=== PATIENT | male | born 1965 ===

== ENCOUNTER 2024-11-21 16:45 | Inpatient (IN) | payer OTHER ==
[~2024-11-21] VITALS: Ht 188 cm; Wt 98.7 kg
[2024-11-21] MEDS ORDERED: NS 1,000 ML IV SCH (17:30)
[2024-11-21] MEDS ORDERED: Pantoprazole Sodium 40 MG Injection IV ONE (17:30)
[2024-11-21 18:12] LABS: Prothrombin Time Results 12.3 Sec (9.7-11.5)
[2024-11-21 18:29] LABS: Magnesium, Blood 2.0 mg/dL (1.6-2.4)
[2024-11-21 18:30] LABS: Alanine Aminotransfer (ALT/SGP 41.0 U/L (12-78); Albumin, Blood 2.5 g/dL (3.4-5.0); Albumin/Globulin Ratio 0.6 (0.8-1.8); Anion Gap 9.0 mmol/L (3-11); Aspartate Aminotrans (AST/SGOT 43.0 U/L (12-37); Bilirubin, Total 1.2 mg/dL (0.1-1.0); Blood Urea Nitrogen 20.0 mg/dL (8-24); CO2, Blood 24.0 mmol/L (21-32); Calcium, Blood 8.7 mg/dL (8.5-10.1); Chloride, Blood 107.0 mmol/L (98-108); Creatinine, Blood 0.9 mg/dL (0.60-1.20); Globulin, Blood 4.5 g/dL (2.2-4.0); Glucose, Blood 98.0 mg/dL (70-99); Phosphorus, Blood 3.7 mg/dL (2.5-4.9); Potassium, Blood 4.1 mmol/L (3.5-5.5); Sodium, Blood 136.0 mmol/L (136-145); Total Protein, Blood 7.0 g/dL (6.4-8.2)
[2024-11-21 18:37] LABS: BASOPHILS ABSOLUTE AUTO 0.04 K/mm3 (0.00-0.23); BASOPHILS PERCENT AUTO 1 % (0-2); EOSINOPHILS ABSOLUTE AUTO 0.15 K/mm3 (0.00-0.68); EOSINOPHILS PERCENT AUTO 3 % (0-6); Hematocrit 39.3 % (37.0-53.0); Hemoglobin 12.6 g/dL (13.5-17.5); IMMATURE GRAN ABSOLUTE AUTO 0.01 K/mm3 (0.00-0.10); IMMATURE GRAN PERCENT AUTO 0 % (0-1); LYMPHOCYTES ABSOLUTE AUTO 1.04 K/mm3 (0.84-5.20); LYMPHOCYTES PERCENT AUTO 19 % (21-46); MONOCYTES ABSOLUTE AUTO 0.62 K/mm3 (0.16-1.47); MONOCYTES PERCENT AUTO 12 % (4-13); Mean Corpuscular HGB Conc 32.1 g/dL (31.5-36.5); Mean Corpuscular Volume 97 fL (80-100); NEUTROPHILS ABSOLUTE AUTO 3.51 K/mm3 (1.96-9.15); NEUTROPHILS PERCENT AUTO 65 % (41-73); NRBC ABSOLUTE 0.00 K/mm3 (0.00-0.02); NRBC Auto 0.0 /100 WBC (0.0-0.2); RDW Coefficient Variation 13.7 % (11.7-14.2); RDW Standard Deviation 48.1 fL (35.1-46.3)
[2024-11-21 18:55] LABS: Platelet Count 3 K/mm3 (150-400)
[2024-11-21 19:06] LABS: pH Blood Venous 7.41 (7.34-7.37)
[2024-11-21 19:48] LABS: Influenza A, PCR NEGATIVE (NEGATIVE); Influenza B, PCR NEGATIVE (NEGATIVE); Resp Syncytial Virus, PCR NEGATIVE (NEGATIVE); SARS-Cov-2 (COVID-19) PCR, MMC NEGATIVE (NEGATIVE)
[2024-11-21 20:02] LABS: IMMATURE RETIC FRACTION 28.6 % (2.3-16.0); RETIC HGB EQUIVALENT 31.7 pg (28.20-36.60); RETICULOCYTE ABSOLUTE 0.1268 M/mm3 (0.0200-0.1100); RETICULOCYTE COUNT PERCENT 2.99 % (0.50-2.50)
[2024-11-21 20:27] LABS: Lactate Dehydrogenase (Ld),Bld 422 U/L (100-240)
[2024-11-21] MEDS ORDERED: Dexamethasone Sod Phos 10 MG/ML 1ML VIAL IV ONE (21:55)
[2024-11-21] MEDS ORDERED: ATOR40TA PO (22:21)
[2024-11-21 22:22] LABS: Source, Urine Clean Catch
[2024-11-21] MEDS ORDERED: VITAMIN D350 MC3 PO (22:22)
[2024-11-21] MEDS ORDERED: SERTRALINE HCL50 MG PO (22:22)
[2024-11-21] MEDS ORDERED: CARV6.25 PO (22:22)
[2024-11-21] MEDS ORDERED: LEVSOD75 PO (22:22)
[2024-11-21] MEDS ORDERED: METF500C PO (22:23)
[2024-11-21] MEDS ORDERED: CefTRIAXone Sodium 1,000 MG in NS 100 ML IV ONE (22:25)
[2024-11-21] MEDS ORDERED: Dexamethasone Sodium Phosphate 4 MG/ML 5ML VIAL IV ONE (23:00)
[2024-11-21 23:44] LABS: Glucose Qualitative, Urine Neg (Neg); Ketones, Urine 1+ (Neg); Leukocyte Esterase, Urine 1+ (Neg); Protein, Urine 3+ (Neg); Specific Gravity, Urine 1.020 (1.003-1.022); Urobilinogen, Urine 1+ (Normal)
[2024-11-21 23:54] LABS: Bilirubin, Urine 1+ (Neg); Color, Urine Brown (P-Yellow)
[2024-11-21 23:55] LABS: Red Blood Cells, Urine TNTC /hpf (0-2)
[2024-11-21] MEDS ORDERED: FLU VACC TS2025-26(6MOS UP)/PF 45 MCG/0.5 ML SYRINGE IM SCH (23:55)
[2024-11-22] VITALS (61 sets, daily range): BP systolic 103–162; BP diastolic 38–116
[2024-11-22] LABS: U Amphetamine Screen DETECTED; U Barbiturate Screen Not Detected; U Benzodiazapine Screen Not Detected; U Buprenorphine Screen Not Detected; U Cannabinoids Screen Not Detected; U Cocaine Screen Not Detected; U Methadone Screen Not Detected; U Methamphetamine Screen DETECTED; U Opiates Screen Not Detected; U Oxycodone Screen Not Detected; U Phencyclidine Screen Not Detected
[2024-11-22] MEDS ORDERED: Guaifenesin/Dextromethorphan Syrup 5 ML UDC PO PRN (01:35)
[2024-11-22 05:15] LABS: BASOPHILS ABSOLUTE AUTO 0.02 K/mm3 (0.00-0.23); BASOPHILS PERCENT AUTO 0 % (0-2); EOSINOPHILS ABSOLUTE AUTO 0.01 K/mm3 (0.00-0.68); EOSINOPHILS PERCENT AUTO 0 % (0-6); Hematocrit 37.9 % (37.0-53.0); Hemoglobin 12.3 g/dL (13.5-17.5); IMMATURE GRAN ABSOLUTE AUTO 0.05 K/mm3 (0.00-0.10); IMMATURE GRAN PERCENT AUTO 1 % (0-1); LYMPHOCYTES ABSOLUTE AUTO 0.30 K/mm3 (0.84-5.20); LYMPHOCYTES PERCENT AUTO 6 % (21-46); MONOCYTES ABSOLUTE AUTO 0.08 K/mm3 (0.16-1.47); MONOCYTES PERCENT AUTO 2 % (4-13); Mean Corpuscular HGB Conc 32.5 g/dL (31.5-36.5); Mean Corpuscular Volume 97 fL (80-100); NEUTROPHILS ABSOLUTE AUTO 4.20 K/mm3 (1.96-9.15); NEUTROPHILS PERCENT AUTO 90 % (41-73); NRBC ABSOLUTE 0.00 K/mm3 (0.00-0.02); NRBC Auto 0.0 /100 WBC (0.0-0.2); RDW Coefficient Variation 13.5 % (11.7-14.2); RDW Standard Deviation 47.1 fL (35.1-46.3)
[2024-11-22 05:22] LABS: Platelet Count 0 K/mm3 (150-400)
[2024-11-22 05:37] LABS: Alanine Aminotransfer (ALT/SGP 39.0 U/L (12-78); Albumin, Blood 2.4 g/dL (3.4-5.0); Albumin/Globulin Ratio 0.6 (0.8-1.8); Anion Gap 6.0 mmol/L (3-11); Aspartate Aminotrans (AST/SGOT 34.0 U/L (12-37); Bilirubin, Total 1.1 mg/dL (0.1-1.0); Blood Urea Nitrogen 18.0 mg/dL (8-24); CO2, Blood 27.0 mmol/L (21-32); Calcium, Blood 8.2 mg/dL (8.5-10.1); Chloride, Blood 109.0 mmol/L (98-108); Creatinine, Blood 0.81 mg/dL (0.60-1.20); Globulin, Blood 4.2 g/dL (2.2-4.0); Glucose, Blood 176.0 mg/dL (70-99); Potassium, Blood 4.1 mmol/L (3.5-5.5); Sodium, Blood 138.0 mmol/L (136-145); Total Protein, Blood 6.6 g/dL (6.4-8.2)
--- NOTE | 2024-11-22 05:48 | NUR ---
SHIFT SUMMARY PT A/OX4, USES CALL LIGHT AND MAKES NEEDS KNOWN. PT ON AIRVO 40L/50%. SATS > 94%, DENIES SOB. HR 80'S, BP STABLE. DENYING PAIN. USES URINAL INDEPENDENTLY. IS AT BEDSIDE. PT HAS CRITICAL PLT COUNT OF 0 ON AM LABS, PROVIDER NOTIFIED, NO NEW ORDERS GIVEN. PT HAS RASH ON BOTH LEGS, PT STATES IT DOES NOT ITCH OR BURN. PT HAD NO ACUTE EVENTS AND WAS ABLE TO REST WELL T/O THE NIGHT. CALL LIGHT IN REACH.
[2024-11-22] MEDS ORDERED: Lactobacil 2-S.Thermo-Bifido 1 1 Cap PO SCH (09:00)
[2024-11-22] MEDS ORDERED: NS 500 ML IV SCH (09:30)
[2024-11-22] MEDS ORDERED: Dexamethasone Sodium Phosphate 4 MG/ML 5ML VIAL IV SCH (10:00)
[2024-11-22] MEDS ORDERED: Ipratropium/Albuterol SulF 2.5-0.5MG/3 ML Amp INH SCH (10:50)
[2024-11-22] MEDS ORDERED: Albuterol 2.5 MG/3 ML VIAL INH PRN (10:50)
[2024-11-22 11:50] LABS: Influenza A/2009-H1 Not Detected (NOT DETECT); SARS-Cov-2 (COVID-19), BioFire Not Detected (NOT DETECT)
[2024-11-22 14:10] LABS: BASOPHILS ABSOLUTE AUTO 0.01 K/mm3 (0.00-0.23); BASOPHILS PERCENT AUTO 0 % (0-2); EOSINOPHILS ABSOLUTE AUTO 0.01 K/mm3 (0.00-0.68); EOSINOPHILS PERCENT AUTO 0 % (0-6); Hematocrit 37.3 % (37.0-53.0); Hemoglobin 12.2 g/dL (13.5-17.5); IMMATURE GRAN ABSOLUTE AUTO 0.05 K/mm3 (0.00-0.10); IMMATURE GRAN PERCENT AUTO 1 % (0-1); LYMPHOCYTES ABSOLUTE AUTO 0.31 K/mm3 (0.84-5.20); LYMPHOCYTES PERCENT AUTO 6 % (21-46); MONOCYTES ABSOLUTE AUTO 0.09 K/mm3 (0.16-1.47); MONOCYTES PERCENT AUTO 2 % (4-13); Mean Corpuscular HGB Conc 32.7 g/dL (31.5-36.5); Mean Corpuscular Volume 95 fL (80-100); NEUTROPHILS ABSOLUTE AUTO 4.70 K/mm3 (1.96-9.15); NEUTROPHILS PERCENT AUTO 91 % (41-73); NRBC ABSOLUTE 0.00 K/mm3 (0.00-0.02); NRBC Auto 0.0 /100 WBC (0.0-0.2); RDW Coefficient Variation 13.2 % (11.7-14.2); RDW Standard Deviation 45.6 fL (35.1-46.3)
[2024-11-22 14:13] LABS: Platelet Count 0 K/mm3 (150-400)
[2024-11-22] MEDS ORDERED: DiphenhydrAMINE HCl 50 MG/ML 1ML Vial IV PRN (14:25)
[2024-11-22] MEDS ORDERED: ONDANSETRON 2 MG/ML IV ONE (14:25)
[2024-11-22] MEDS ORDERED: Ondansetron HCl 2 MG / ML 2ML Vial IV SCH (14:30)
[2024-11-22] MEDS ORDERED: IMMUN GLOB G(IGG)/PRO/IGA 0-50 100 ML IV SCH (14:30)
--- NOTE | 2024-11-22 16:50 | NUR ---
Spiritual Care Visit. Pt. is awake in bed when he welcomes my visit. Daughter is at bedside. Pt. is pleasant, but curious about the nature of the spiritual care visit. Facilitated a life reveiw and considered matters of edson and belief. Listened with empathy and interest. Pt. displayed evidence of trust, engagement and awareness. Prayed with the Pt. Pt. 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
--- NOTE | 2024-11-22 18:39 | NUR ---
SHIFT SUMMARY ASSUMES CARE OF PATIENT AT APPROX 0700. PT APPEARS TO BE SLEEPING, WAKES WITH VERBAL STIMULI, QUICKLY FALLS BACK TO SLEEP, WOKE SEVERAL TIMES BEFORE STAYING AWAKE. ALERT, ORIENTED X4; IRRITABLE AT TIMES, COOPERATIVE WITH CARE. PT RESTING IN BED, MOVES IND IN BED. PT DENIES PAIN, CHEST PAIN/PRESSURE, NAUSEA, DIZZINESS AND NUMB/TINGLING. SOB WITH MINIMAL EXERTION, SPO2 >88% ON AIRVO 45L 55%, DOWN FROM 64%, LS DIM T/O, THIS AM NOTED EXP WHEEZES. TELE SINUS 70-80'S, BP STABLE. NO EDEMA NOTED. ABD MILD DISTENDED, NONTENDER, +BT T/O. OTHER VSS. SPUTUM SAMPLE COLLECETED, NOTED SPECKLED WITH BLOOD, MD NOTIFIED. PATIENT RECEIVED 2 UNITS OF PLATLETS DURING SHIFT, RECHECK AFTER 1ST UNIT, PLATLET CONTINUES AT 0, PLANS FOR ANOTHER RECHECK AT 2200. DR SORIA AT BEDSIDE THIS AM, PLANS FOR ADDITIONAL TESTING AND MONITORING. DR GARCIA AT BEDSIDE THIS AFTERNOON, DISCUSSES POSSIBLE DX AND PLAN OF CARE, CONTINUEING THE DEXAMETHASON IV AND GIVING ONE DOSE OF IVIG, STARTED THIS EVENING. THIS AFTERNOON PT HAD BLOODIED TISSUE IN HAND, THIS RN QUESTIONED WHERE THE BLEEDING WAS COMING FROM, PT STATES "FROM DOWN THERE" POINTING TO GENITALS; THIS RN ASKED IF IT WAS FROM A CUT OR THE TIP OF GENITALS AND PT STATES "I RUBBED ONE OUT." NOTIFIED MD. EDUCATED PT ON ACCEPTABLE BEHAVIORS IN HOSPITAL.
[2024-11-22] MEDS ORDERED: CefTRIAXone Sodium 1,000 MG in NS 100 ML IV SCH (21:00)
[2024-11-22 22:11] LABS: BASOPHILS ABSOLUTE AUTO 0.01 K/mm3 (0.00-0.23); BASOPHILS PERCENT AUTO 0 % (0-2); EOSINOPHILS ABSOLUTE AUTO 0.00 K/mm3 (0.00-0.68); EOSINOPHILS PERCENT AUTO 0 % (0-6); Hematocrit 35.4 % (37.0-53.0); Hemoglobin 11.8 g/dL (13.5-17.5); IMMATURE GRAN ABSOLUTE AUTO 0.06 K/mm3 (0.00-0.10); IMMATURE GRAN PERCENT AUTO 1 % (0-1); LYMPHOCYTES ABSOLUTE AUTO 0.28 K/mm3 (0.84-5.20); LYMPHOCYTES PERCENT AUTO 4 % (21-46); MONOCYTES ABSOLUTE AUTO 0.40 K/mm3 (0.16-1.47); MONOCYTES PERCENT AUTO 5 % (4-13); Mean Corpuscular HGB Conc 33.3 g/dL (31.5-36.5); Mean Corpuscular Volume 94 fL (80-100); NEUTROPHILS ABSOLUTE AUTO 6.61 K/mm3 (1.96-9.15); NEUTROPHILS PERCENT AUTO 90 % (41-73); NRBC ABSOLUTE 0.02 K/mm3 (0.00-0.02); NRBC Auto 0.3 /100 WBC (0.0-0.2); RDW Coefficient Variation 13.2 % (11.7-14.2); RDW Standard Deviation 44.8 fL (35.1-46.3)
[2024-11-22 22:30] LABS: Platelet Count 0 K/mm3 (150-400)
--- NOTE | 2024-11-22 22:54 | NUR ---
LAB CALLED WITH CRITICAL VALUE, PLATELETS OF 0. MD NOTIFIED, NO NEW ORDERS AT THIS TIME. PT CURRENTLY RECIEVING IVIG ON BOTTLE 5 OF 8. WILL MONITOR PT.
[2024-11-23] VITALS (13 sets, daily range): BP systolic 124–157; BP diastolic 75–107
[2024-11-23 03:36] LABS: BASOPHILS ABSOLUTE AUTO 0.01 K/mm3 (0.00-0.23); BASOPHILS PERCENT AUTO 0 % (0-2); EOSINOPHILS ABSOLUTE AUTO 0.00 K/mm3 (0.00-0.68); EOSINOPHILS PERCENT AUTO 0 % (0-6); Hematocrit 34.8 % (37.0-53.0); Hemoglobin 11.5 g/dL (13.5-17.5); IMMATURE GRAN ABSOLUTE AUTO 0.07 K/mm3 (0.00-0.10); IMMATURE GRAN PERCENT AUTO 1 % (0-1); LYMPHOCYTES ABSOLUTE AUTO 0.36 K/mm3 (0.84-5.20); LYMPHOCYTES PERCENT AUTO 4 % (21-46); MONOCYTES ABSOLUTE AUTO 0.43 K/mm3 (0.16-1.47); MONOCYTES PERCENT AUTO 5 % (4-13); Mean Corpuscular HGB Conc 33.0 g/dL (31.5-36.5); Mean Corpuscular Volume 96 fL (80-100); NEUTROPHILS ABSOLUTE AUTO 7.52 K/mm3 (1.96-9.15); NEUTROPHILS PERCENT AUTO 90 % (41-73); NRBC ABSOLUTE 0.00 K/mm3 (0.00-0.02); NRBC Auto 0.0 /100 WBC (0.0-0.2); RDW Coefficient Variation 13.3 % (11.7-14.2); RDW Standard Deviation 45.8 fL (35.1-46.3)
[2024-11-23 03:43] LABS: Platelet Count 1 K/mm3 (150-400)
[2024-11-23 04:01] LABS: Anion Gap 6.0 mmol/L (3-11); Blood Urea Nitrogen 19.0 mg/dL (8-24); CO2, Blood 28.0 mmol/L (21-32); Calcium, Blood 8.2 mg/dL (8.5-10.1); Chloride, Blood 108.0 mmol/L (98-108); Creatinine, Blood 0.71 mg/dL (0.60-1.20); Glucose, Blood 162.0 mg/dL (70-99); Potassium, Blood 4.2 mmol/L (3.5-5.5); Sodium, Blood 138.0 mmol/L (136-145)
--- NOTE | 2024-11-23 05:44 | NUR ---
SHIFT SUMMARY PT A&O X4, CALM, COOPERATIVE TO CARE. HR IN THE 70'S, SR, HE DENIES CP/PRESSURE, NUMB/TINGLING, SBP STABLE. PT ON AIRVO 45L/ 57% FIO2. SpO2 >90%, HE HAS INTERMITTENT PERIODS OF SOB, WORSE WITH EXERTION. PT USING URINAL IN BED INDEPENDENTLY. PT COMPLETED IVIG THIS AM, TOLERATED WELL. MORNING LABS WITH PLATELETS OF 1, NOTIFIED, NO NEW ORDERS AT THIS TIME. PT RESTING IN BED AT THIS TIME. SIGNIFICANT OTHER AT BEDSIDE T/O NIGHT. CALL LIGHT IN REACH. WILL MONITOR PT AND REPORT TO ONCOMING RN.
[2024-11-23] MEDS ORDERED: Furosemide 10 MG / ML 2ML Vial IV ONE (09:00)
--- NOTE | 2024-11-23 09:00 | NUR ---
am note this rn assumed care at 0700. vital signs stable. airvo 45l 45% spo2 >90%. sinus rhythm 70s. patient is alert and oriented x4. neuro is intact. standby assist for safety and respiratory demand. patient denies pain, chest pain/pressure. patient reports shortness of breath with exertion. patient upper lobes dim and clear and patient lower lobes have dim crackles. patient has petechiae on extremities and abd. see shift assessment for further detials. md mccauley in to see this morning and order for platelets, one time dose of lasix, and additional cough meds. see orders. md norman in to see patient and discussed plan to get up and continue with steriods and goal oxygenation above 90%. patient at bedside with both doctor visits. plan of care is up to date
--- NOTE | 2024-11-23 11:51 | NUR ---
update patient out of bed and sitting in bedside chair. patient hyperoxygenated before getting up and tolerated well. airvo settings are currently 50L and 55% and spo2 >90%.
[2024-11-23 14:23] LABS: Hematocrit 36.8 % (37.0-53.0); Hemoglobin 12.0 g/dL (13.5-17.5); Mean Corpuscular HGB Conc 32.6 g/dL (31.5-36.5); Mean Corpuscular Volume 97 fL (80-100); NRBC ABSOLUTE 0.00 K/mm3 (0.00-0.02); NRBC Auto 0.0 /100 WBC (0.0-0.2); RDW Coefficient Variation 13.7 % (11.7-14.2); RDW Standard Deviation 47.4 fL (35.1-46.3)
[2024-11-23 14:26] LABS: Platelet Count 0 K/mm3 (150-400)
[2024-11-23 14:51] LABS: BASOPHILS ABSOLUTE MAN 0.00 K/mm3 (0.00-0.23); BASOPHILS PERCENT MAN 0 % (0-2); EOSINOPHILS ABSOLUTE MAN 0.00 K/mm3 (0.00-0.68); EOSINOPHILS PERCENT MAN 0 % (0-6); LYMPHOCYTES ABSOLUTE MAN 0.27 K/mm3 (0.84-5.20); LYMPHOCYTES PERCENT MAN 3 % (21-46); MONOCYTES ABSOLUTE MAN 0.09 K/mm3 (0.16-1.47); MONOCYTES PERCENT MAN 1 % (4-13); NEUTROPHILS ABSOLUTE MAN 8.72 K/mm3 (1.96-9.15); SEG NEUTROPHILS PERCENT MAN 96 % (41-73)
--- NOTE | 2024-11-23 16:50 | NUR ---
SHIFT SUMMARY patient vital signs remain stable. no acute changes this shift. see previous notes. plan remains up to date
--- NOTE | 2024-11-23 19:22 | NUR ---
PALLIATIVE CARE VISIT: MET WITH PT TO DISCUSS GOC, AD/POLST. PT A/OX4 ABLE AND WILLING TO HAVE DISCUSSION. EDUCATED PT ON POLST, CPR VS DNR. PT WISHES TO BE FULL CODE, WANTS CPR IF NEEDED. DISCUSSED ADVANCE DIRECTIVE IN EVENT HE IS UNABLE TO MAKE MEDICAL DECISIONS. PT DOES NOT WANT HIS SON MAKING HIS DECISIONS FOR HIM. HE NAMED HIS TWIN BROTHER IRVIN WHITEHEAD PRIMARY HEALTHCARE CELLAR WORKER AND SIGNIFICANT OTHER/EX- JAIRON WHITEHEAD TO MAKE HIS DECISIONS SECONDARY DECISION MAKER. TWO WITNESSES SIGNED ADVANCE DIRECTIVE. COPY PLACED ON CHART. ORIGINAL GIVEN BACK TO PT. POLST AWAITING MD SIGNATURE AND IS IN ROOM. UPDATED PRIMARY RN.
--- NOTE | 2024-11-23 20:52 | NUR ---
ASSUMPTION OF CARE CARE OF PT ASSUMED FOLLOWING BEDSIDE SHIFT REPORT FROM DAY RN. PT IN ROOM WITH MELANIE, PALLIATIVE CARE. ADVANCED DIRECTIVE SIGNED AND PUT IN CHART, NOT NOTARIZED. FULL CODE REMAINS. VSS. PT ON AIRVO 50/50 WITH SPO2 > 90%. NO CHEST PAIN/PRESSURE. PT HAD MILD SOB UPON STANDING FOR SEVERAL MINUTES AND O2 DECREASED TO 90%. PARTNER, JAIRON, IN ROOM WITH PT. WILL REVIEW AND CONTINUE PLAN OF CARE.
[2024-11-24] VITALS (22 sets, daily range): BP systolic 122–153; BP diastolic 67–108
[2024-11-24 04:10] LABS: HAPTOGLOBIN 182 mg/dL (30-200)
[2024-11-24 04:11] LABS: BASOPHILS ABSOLUTE AUTO 0.01 K/mm3 (0.00-0.23); BASOPHILS PERCENT AUTO 0 % (0-2); EOSINOPHILS ABSOLUTE AUTO 0.00 K/mm3 (0.00-0.68); EOSINOPHILS PERCENT AUTO 0 % (0-6); Hematocrit 35.4 % (37.0-53.0); Hemoglobin 11.8 g/dL (13.5-17.5); IMMATURE GRAN ABSOLUTE AUTO 0.05 K/mm3 (0.00-0.10); IMMATURE GRAN PERCENT AUTO 1 % (0-1); LYMPHOCYTES ABSOLUTE AUTO 0.43 K/mm3 (0.84-5.20); LYMPHOCYTES PERCENT AUTO 5 % (21-46); MONOCYTES ABSOLUTE AUTO 0.39 K/mm3 (0.16-1.47); MONOCYTES PERCENT AUTO 5 % (4-13); Mean Corpuscular HGB Conc 33.3 g/dL (31.5-36.5); Mean Corpuscular Volume 95 fL (80-100); NEUTROPHILS ABSOLUTE AUTO 7.51 K/mm3 (1.96-9.15); NEUTROPHILS PERCENT AUTO 90 % (41-73); NRBC ABSOLUTE 0.00 K/mm3 (0.00-0.02); NRBC Auto 0.0 /100 WBC (0.0-0.2); RDW Coefficient Variation 13.8 % (11.7-14.2); RDW Standard Deviation 46.2 fL (35.1-46.3)
[2024-11-24 04:18] LABS: Platelet Count 0 K/mm3 (150-400)
[2024-11-24 04:32] LABS: Alanine Aminotransfer (ALT/SGP 54.0 U/L (12-78); Albumin, Blood 2.5 g/dL (3.4-5.0); Albumin/Globulin Ratio 0.5 (0.8-1.8); Anion Gap 4.0 mmol/L (3-11); Aspartate Aminotrans (AST/SGOT 43.0 U/L (12-37); Bilirubin, Total 1.0 mg/dL (0.1-1.0); Blood Urea Nitrogen 22.0 mg/dL (8-24); CO2, Blood 30.0 mmol/L (21-32); Calcium, Blood 8.2 mg/dL (8.5-10.1); Chloride, Blood 105.0 mmol/L (98-108); Creatinine, Blood 0.72 mg/dL (0.60-1.20); Globulin, Blood 4.8 g/dL (2.2-4.0); Glucose, Blood 145.0 mg/dL (70-99); Potassium, Blood 4.3 mmol/L (3.5-5.5); Sodium, Blood 135.0 mmol/L (136-145); Total Protein, Blood 7.3 g/dL (6.4-8.2)
--- NOTE | 2024-11-24 06:35 | NUR ---
SHIFT SUMMARY PT LYING IN BED SLEEPING, AWAKES TO VOICE AND IS ALERT AND ORIENTED TO ALL. PT DENIES PAIN AND IS AFEBRILE. MAEW. STEADY ON FEET WHEN UP LAST NIGHT. PT IN SINUS RHYTHM 60'S AND BP IS STABLE TO MILDLY ELEVATED, SBP 130-150. PT DENIES CHEST PAIN/PRESSURE. PT ON AIRVO 50L/MIN AND 46% FIO2 WITH SATURATION >92%. CRACKLES IN BASES. PT HAS COUGH, TREATED THIS AM WITH ROBITUSSIN. PT SOB WHEN STANDING FOR 5 MIN LAST NIGHT. NO BM. URINE OUTPUT 750ML PLUS A PARTIAL WET BRIEF. PLT STILL ZERO THIS AM. PT'S PARTNER, JAIRON, IN ROOM ALL NIGHT- NICE AND HELPFUL. BEDSIDE SHIFT REPORT GIVEN TO DAY RN.
--- NOTE | 2024-11-24 11:35 | NUR ---
SPOKE WITH DR GARCIA REVIEWED CURRENT LABS, PLT REMAIN 0. TELEPHONE ORDER RECIEVED FROM DR GARCIA FOR IVIG WITH PREMEDS. NOTIFIED DR PATRICIA PHOTOS OF PURPURA AND PETECHIAE TAKEN FOR CHART, APPEARS UNCHANGED FROM YESTERDAY.
[2024-11-24] MEDS ORDERED: IMMUN GLOB G(IGG)/PRO/IGA 0-50 100 ML IV SCH (12:00)
[2024-11-24 15:30] LABS: HIV 1,2 COMBO ANTIGEN/ANTIBODY Negative (Negative)
--- NOTE | 2024-11-24 18:32 | NUR ---
SHIFT SUMMARY NEURO: A/O X4. GOOD MUSCLE STRENGTH, MOVES ALL EXTERMITITES WELL. AFEBRLE CARDIAC: SBP 120-150S, HR 60-70S. SR WITH FREQUENT PSVTS. DENIES ANY CHEST PAIN OR PALPATATIONS. PULM: BIBASILAR CRACKLES, AIRVO 50L @ 34%. SPO2 >92%. +COUGH PRN TESSLON PERLES EFFECTIVE. GI: ACTIVE BOWEL TONES XL BM TODAY, DARK BROWN IN COLOR. GOOD APPETITE : DARK YELLOW UOP, USING URINAL AT BEDSIDE/CHAIR SIDE. SKIN: UNCHANGED PURPURA AND PETECHIAE. PHOTOS TAKEN AND PLACED IN THE CHART. PT WALKED IN THE ROOM MULTIPLE TIMES WITH ROM EXERCISES, TOLERATED VERY WELL. LESS DYSPNEA THAN YESTERDAY AND MAINTAINED O2 SATS ON CURRENT SETTINGS DENIED ANY PAIN TODAY, LOTS OF EDUCATION PROVIDED TO PT AND FAMILY REGARDING ITP AND PNA TODAY.
--- NOTE | 2024-11-24 22:00 | NUR ---
PT INJURY: WHILE GETTING BACK IN BED FROM CHAIR, PT PLACED HAND ON BED TO LOWER SELF DOWN AND INJURED HIS LEFT 4TH DIGIT. PT COMPLAINED OF IMMEDIATE NUMBNESS IN DISTRAL MIDDLE PHALANGE AND ALL OF DISTRAL PHALANGE. PT COULD NOT STRAIGHTEN FINGER COMPLETELY. DIGIT SHOWED SLIGHT DISCOLORATION AND EVENTUALLY BECAME PAINFUL. PROVIDER WAS CALLED AND ORDER PLACED FOR XRAY. PT GIVEN TYLENOL FOR PAIN HE SAID OPIATES "MAKE (HIM) SICK." ICE PLACED ON FINGER WELL.
--- NOTE | 2024-11-24 23:08 | NUR ---
ASSUMPTION OF CARE CARE OF PT ASSUMED FOLLOWING BEDSIDE SHIFT REPORT FROM DAY RN. VSS. PT ON AIRVO 50/36% WITH SPO2 > 90%. NO CHEST PAIN/PRESSURE. PT HAS SOB WHEN STANDING OR MOVING. PT'S BROTHER AND HEALTHCARE MANUFACTURING OPERATOR, IRVIN, IS IN THE ROOM. IVIG INFUSING AT 100ML/HR WITHOUT HEADACHE, NAUSEA, ABD PAIN. WILL REVIEW AND CONTINUE PLAN OF CARE.
[2024-11-25] VITALS (17 sets, daily range): BP systolic 124–161; BP diastolic 67–104
--- NOTE | 2024-11-25 06:12 | NUR ---
SHIFT SUMMARY PT LYING IN BED SLEEPING, AWAKES TO VOICE AND IS ALERT AND ORIENTED TO ALL. PT DENIES PAIN AND IS AFEBRILE. MAEW. STEADY ON FEET WHEN UP LAST NIGHT. PT IN SINUS RHYTHM 60'S AND BP IS STABLE TO MILDLY ELEVATED, SBP 130-150. PT DENIES CHEST PAIN/PRESSURE. PT ON AIRVO 50L/MIN AND 45% FIO2 WITH SATURATION >92%. CRACKLES IN BASES. PT HAS COUGH, LESS SEVERE THAN PREVIOUS NIGHT. PT SOB WHEN STANDING. NO BM. URINE OUTPUT 2325ML PLUS A WET BRIEF. LABS HELD OFF SO PT COULD SLEEP, SO PLT VALUE NOT KNOWN AT THIS TIME. PT'S PARTNER, JAIRON, IN ROOM ALL NIGHT- NICE AND HELPFUL. PT INJURED LEFT 4TH DIGIT EARLY IN SHIFT- SEE NOTE. XRAY WAS DONE; NO FRACTURES APPARENT BUT FINGER REMAINS PAINFUL AND NUMB FROM MID MIDDLE PHALANGE TO TIP OF FINGER. SWELLING IS MINIMAL. BEDSIDE SHIFT REPORT GIVEN TO DAY RN.
[2024-11-25 07:50] LABS: BASOPHILS ABSOLUTE AUTO 0.00 K/mm3 (0.00-0.23); BASOPHILS PERCENT AUTO 0 % (0-2); EOSINOPHILS ABSOLUTE AUTO 0.00 K/mm3 (0.00-0.68); EOSINOPHILS PERCENT AUTO 0 % (0-6); Hematocrit 35.6 % (37.0-53.0); Hemoglobin 11.2 g/dL (13.5-17.5); IMMATURE GRAN ABSOLUTE AUTO 0.04 K/mm3 (0.00-0.10); IMMATURE GRAN PERCENT AUTO 1 % (0-1); LYMPHOCYTES ABSOLUTE AUTO 0.51 K/mm3 (0.84-5.20); LYMPHOCYTES PERCENT AUTO 8 % (21-46); MONOCYTES ABSOLUTE AUTO 0.38 K/mm3 (0.16-1.47); MONOCYTES PERCENT AUTO 6 % (4-13); Mean Corpuscular HGB Conc 31.5 g/dL (31.5-36.5); Mean Corpuscular Volume 98 fL (80-100); NEUTROPHILS ABSOLUTE AUTO 5.70 K/mm3 (1.96-9.15); NEUTROPHILS PERCENT AUTO 86 % (41-73); NRBC ABSOLUTE 0.00 K/mm3 (0.00-0.02); NRBC Auto 0.0 /100 WBC (0.0-0.2); RDW Coefficient Variation 13.9 % (11.7-14.2); RDW Standard Deviation 48.4 fL (35.1-46.3)
[2024-11-25 07:56] LABS: Platelet Count 0 K/mm3 (150-400)
[2024-11-25 08:14] LABS: Magnesium, Blood 2.3 mg/dL (1.6-2.4); Thyroid Stimulating Hormone 0.466 uIU/mL (0.360-4.800)
[2024-11-25 08:15] LABS: Alanine Aminotransfer (ALT/SGP 84.0 U/L (12-78); Albumin, Blood 2.2 g/dL (3.4-5.0); Albumin/Globulin Ratio 0.4 (0.8-1.8); Anion Gap 6.0 mmol/L (3-11); Aspartate Aminotrans (AST/SGOT 62.0 U/L (12-37); Bilirubin, Total 0.8 mg/dL (0.1-1.0); Blood Urea Nitrogen 20.0 mg/dL (8-24); CO2, Blood 32.0 mmol/L (21-32); Calcium, Blood 7.9 mg/dL (8.5-10.1); Chloride, Blood 106.0 mmol/L (98-108); Creatinine, Blood 0.74 mg/dL (0.60-1.20); Globulin, Blood 5.4 g/dL (2.2-4.0); Glucose, Blood 120.0 mg/dL (70-99); Potassium, Blood 4.2 mmol/L (3.5-5.5); Sodium, Blood 140.0 mmol/L (136-145); Total Protein, Blood 7.6 g/dL (6.4-8.2)
--- NOTE | 2024-11-25 16:35 | NUR ---
SHIFT SUMMARY NEURO: A/O X4, ABLE TO MAKE HIS NEEDS KNOWN AND CALLS APPROPRIATELY. AFEBRILE. CARDIAC: SR HR 60-70S, SBP 110S-150S. PULM: SPO2 >95% ON 50L AT 40%. BIBASILAR CRACKLES AND RML CRACKLES WELL. CXR COMPLETED TODAY BY DR BELL. GI: NORMOACTIVE BOWEL TONES. ABDOMEN IS SOFT. +ABDO HERNIA VISIBLE WHEN BEARING DOWN. : URINE DARK YELLOW, STANDING AND USING URINAL. SKIN: AREA OF BRUISING TO R ABDOMEN OUTLINED, NO GROWTH OF AREA TODAY. L RING FINGER SORE, ROM INTACT, SENSATION INTACT, SOME BRUISING AT DIP. OTHERWISE PURPURA AND PETECHIAE UNCHANGED. PLAN FOR BONE MARROW BIOSPY TOMORROW PER DR PATRICIA. CONSULT PLACED. PROVIDED EDUCATION TO PT AND BROTHER JANA TODAY. PT UP IN THE RECLINER MOST OF THE DAY.
--- NOTE | 2024-11-25 18:16 | NUR ---
PALLIATIVE CARE NOTE: POLST SIGNED BY . FAXED TO [place] [facility] AND COPY SENT TO [facility]. PLACED ORIGINAL IN CHART.
--- NOTE | 2024-11-25 22:26 | NUR ---
ASSUMPTION OF CARE CARE OF PT ASSUMED FOLLOWING BEDSIDE SHIFT REPORT FROM DAY RN. GINO. PT ON AIRVO 50/46% WITH SPO2 > 90%. NO CHEST PAIN/PRESSURE. PT HAS SOB WHEN STANDING OR MOVING. PT SAYS HE FEELS GOOD. WILL REVIEW AND CONTINUE PLAN OF CARE. PT LEFT RING FINGER IS STILL SWOLLEN, DISCOLORED AND MISSHAPED. FINGER WAS NOT EXAMINED TODAY AND PROVIDER LAST NIGHT CHOSE NOT TO INTERUPT PT SLEEP. NIGHT HOSPITALIST CALLED AND ASKED TO EXAMINE FINER SOME TIME THIS EVENING. OF NOTE, XRAY ON FINGER SHOWED NO ACUTE FRACTURE OR DISLOCATION.
--- NOTE | 2024-11-25 22:52 | NUR ---
UPDATE ON FINGER INJURY DR MARTINO EXAMINED THE PT'S LEFT 4TH DIGIT AND THINKS THE LIKELIHOOD OF FRACTURE OR DISLOCATION IS MINIMAL AND THAT THE INJURY SHOULD BE TREATED SYMPTOMATICALLY FOR NOW, WITH OUTPATIENT ORTHO/HAND FOLLOWUP. PT DOES NOT WANT TYLENOL/PAIN MEDS NOW, NOR DOES HE WISH TO ELEVATE, COMPRESS, OR ICE IT.
[2024-11-26] VITALS (19 sets, daily range): BP systolic 116–154; BP diastolic 60–105
--- NOTE | 2024-11-26 01:16 | NUR ---
POLST UPDATE: POLST HAS BEEN FAXED TO [facility]
[2024-11-26 07:13] LABS: BASOPHILS ABSOLUTE AUTO 0.01 K/mm3 (0.00-0.23); BASOPHILS PERCENT AUTO 0 % (0-2); EOSINOPHILS ABSOLUTE AUTO 0.16 K/mm3 (0.00-0.68); EOSINOPHILS PERCENT AUTO 3 % (0-6); Hematocrit 37.3 % (37.0-53.0); Hemoglobin 11.9 g/dL (13.5-17.5); IMMATURE GRAN ABSOLUTE AUTO 0.04 K/mm3 (0.00-0.10); IMMATURE GRAN PERCENT AUTO 1 % (0-1); LYMPHOCYTES ABSOLUTE AUTO 0.86 K/mm3 (0.84-5.20); LYMPHOCYTES PERCENT AUTO 16 % (21-46); MONOCYTES ABSOLUTE AUTO 0.50 K/mm3 (0.16-1.47); MONOCYTES PERCENT AUTO 9 % (4-13); Mean Corpuscular HGB Conc 31.9 g/dL (31.5-36.5); Mean Corpuscular Volume 99 fL (80-100); NEUTROPHILS ABSOLUTE AUTO 3.99 K/mm3 (1.96-9.15); NEUTROPHILS PERCENT AUTO 72 % (41-73); NRBC ABSOLUTE 0.00 K/mm3 (0.00-0.02); NRBC Auto 0.0 /100 WBC (0.0-0.2); RDW Coefficient Variation 14.2 % (11.7-14.2); RDW Standard Deviation 50.2 fL (35.1-46.3)
--- NOTE | 2024-11-26 07:13 | NUR ---
SHIFT SUMMARY PT LYING IN BED SLEEPING, AWAKES TO VOICE AND IS ALERT AND ORIENTED TO ALL. PT DENIES PAIN AND IS AFEBRILE. MAEW. STEADY ON FEET WHEN UP LAST NIGHT. PT IN SINUS RHYTHM 60'S AND BP IS STABLE TO MILDLY ELEVATED, SBP 130-150. PT DENIES CHEST PAIN/PRESSURE. PT ON AIRVO 50L/MIN AND 45% FIO2 WITH SATURATION >92%. scattered CRACKLES THROUGHOUT. PT HAS COUGH, LESS SEVERE THAN PREVIOUS NIGHT. PT SOB WHEN STANDING. NO BM. URINE OUTPUT 2100ML. LABS HELD OFF SO PT COULD SLEEP, SO PLT VALUE NOT KNOWN AT THIS TIME. PT'S PARTNER, JAIRON, IN ROOM ALL NIGHT- NICE AND HELPFUL. PT INJURED LEFT 4TH DIGIT ON SAT NIGHT- SEE NOTE. XRAY WAS DONE; NO FRACTURES APPARENT BUT FINGER REMAINS PAINFUL AND NUMB FROM MID MIDDLE PHALANGE TO TIP OF FINGER. SWELLING IS MINIMAL. DR MARTINO EXAMINED AND FEELS THAT A HEMATOMA MAY HAVE FORMED ATOP THE MIDDLE PHALANGE. PT'S DERMATOLOGIC LESIONS ARE UNCHANGED. TODAY'S PLAN IS A BONE MARROW BIOPSY BY [facility]. PT HAS NPO EXCEPT FOR WATER SINCE MIDNIGHT. PT IS GETTING RESTLESS AND IS READY TO LEAVE. LAST NIGHT HE ASKED FOR SOMETHING TO HELP HIM SLEEP, AND A ONE TIME DOSE OF ATIVAN WAS ORDERED, WHICH HELPED A LITTLE, THE PT SAID. BEDSIDE SHIFT REPORT GIVEN TO DAY RN AND ORIENTEE RN.
[2024-11-26 07:20] LABS: Platelet Count 0 K/mm3 (150-400)
[2024-11-26 07:28] LABS: Alanine Aminotransfer (ALT/SGP 86.0 U/L (12-78); Albumin, Blood 2.3 g/dL (3.4-5.0); Albumin/Globulin Ratio 0.5 (0.8-1.8); Anion Gap 4.0 mmol/L (3-11); Aspartate Aminotrans (AST/SGOT 49.0 U/L (12-37); Bilirubin, Total 0.9 mg/dL (0.1-1.0); Blood Urea Nitrogen 21.0 mg/dL (8-24); CO2, Blood 34.0 mmol/L (21-32); Calcium, Blood 8.2 mg/dL (8.5-10.1); Chloride, Blood 102.0 mmol/L (98-108); Creatinine, Blood 0.72 mg/dL (0.60-1.20); Globulin, Blood 5.1 g/dL (2.2-4.0); Glucose, Blood 113.0 mg/dL (70-99); Potassium, Blood 3.8 mmol/L (3.5-5.5); Sodium, Blood 136.0 mmol/L (136-145); Total Protein, Blood 7.4 g/dL (6.4-8.2)
--- NOTE | 2024-11-26 08:01 | NUR ---
ASSUMPTION OF CARE.. ASSUMED CARE OF PATIENT AT APPROX 0700. PATIENT A&OX4 AND ABLE TO MAKE NEEDS KNOWN. HR SINUS IN THE 60S-70S. BP STABLE WITH MAPS >65. PATIENT ON AIRVO 50L/48% FIO2 WITH SPO2 >94%. PATIENT LAST BM 11/24. PATIENT ABLE TO USE URINAL STANDING AT BEDSIDE WITH YELLOW URINE OUT. PATIENT HAS DIFFUSE PETECHIAE AND PURPURA TO THE THIGH. PARTNER JAIRON AT BEDSIDE. PLAN IS FOR PATIENT TO HAVE BONE BIOPSY TODAY.
[2024-11-26] MEDS ORDERED: Furosemide 10 MG / ML 2ML Vial IV SCH (10:00)
[2024-11-26] MEDS ORDERED: ATOR40TA PO (10:34)
[2024-11-26] MEDS ORDERED: LASIX20 M1 PO (10:35)
[2024-11-26] MEDS ORDERED: Cefepime HCl 2,000 MG in NS 100 ML IV SCH (10:59)
[2024-11-26] MEDS ORDERED: Vancomycin (Pharmacy Consult) IV SCH (11:00)
[2024-11-26] MEDS ORDERED: Vancomycin HCL 2,500 MG in NS 500 ML IV ONE (11:05)
--- NOTE | 2024-11-26 17:18 | NUR ---
SHIFT SUMMARY... PATIENT A&OX4 AND ABLE TO MAKE NEEDS KNOWS. PATIENT ON AIRVO 50L/40% FIO2 WITH SPO2 >94%. HR SINUS IN THE 60S-70S. BP STABLE WITH MAPS >65. PATIENT UP TO CHAIR WITH MIN ASSIST. NO BM THIS SHIFT. PATIENT USES URINAL AT BEDSIDE WITH YELLOW URINE OUT. FAMILY AT BEDSIDE THROUGHOUT THE DAY UPDATED ON PLAN OF CARE. PATIENT IS NOT A CANDIDATE FOR BONE BIOPSY PER DR. PATRICIA.
--- NOTE | 2024-11-26 20:22 | NUR ---
ASSUMED CARE PATIENT IS ALERT AND ORIENTED X4. SP02 96% ON AIRVO 50L, FI02 40%, LS DIMINISHED. PATIENT STATES SOME SOB AT REST WHICH INCREASES WITH ACTIVITY. HR SR 60s. BP STABLE DENIES CP/PRESSURE. USES URINAL. ASSISTED WITH ATTENDS CHANGE AT START OF SHIFT. SIGNIFICANT OTHER IN ROOM HELPING WITH CARE. PATIENT CURRENTLY VISITING WITH FAMILY. CALL LIGHT IN REACH
[2024-11-27] VITALS (12 sets, daily range): BP systolic 109–154; BP diastolic 69–94
[2024-11-27 03:51] LABS: BASOPHILS ABSOLUTE AUTO 0.01 K/mm3 (0.00-0.23); BASOPHILS PERCENT AUTO 0 % (0-2); EOSINOPHILS ABSOLUTE AUTO 0.00 K/mm3 (0.00-0.68); EOSINOPHILS PERCENT AUTO 0 % (0-6); Hematocrit 38.7 % (37.0-53.0); Hemoglobin 12.5 g/dL (13.5-17.5); IMMATURE GRAN ABSOLUTE AUTO 0.05 K/mm3 (0.00-0.10); IMMATURE GRAN PERCENT AUTO 1 % (0-1); LYMPHOCYTES ABSOLUTE AUTO 0.39 K/mm3 (0.84-5.20); LYMPHOCYTES PERCENT AUTO 5 % (21-46); MONOCYTES ABSOLUTE AUTO 0.46 K/mm3 (0.16-1.47); MONOCYTES PERCENT AUTO 6 % (4-13); Mean Corpuscular HGB Conc 32.3 g/dL (31.5-36.5); Mean Corpuscular Volume 95 fL (80-100); NEUTROPHILS ABSOLUTE AUTO 6.69 K/mm3 (1.96-9.15); NEUTROPHILS PERCENT AUTO 88 % (41-73); NRBC ABSOLUTE 0.00 K/mm3 (0.00-0.02); NRBC Auto 0.0 /100 WBC (0.0-0.2); RDW Coefficient Variation 13.7 % (11.7-14.2); RDW Standard Deviation 47.4 fL (35.1-46.3)
[2024-11-27 03:52] LABS: Platelet Count 1 K/mm3 (150-400)
[2024-11-27 04:49] LABS: Anion Gap 5.0 mmol/L (3-11); Blood Urea Nitrogen 25.0 mg/dL (8-24); CO2, Blood 32.0 mmol/L (21-32); Calcium, Blood 8.8 mg/dL (8.5-10.1); Chloride, Blood 102.0 mmol/L (98-108); Glucose, Blood 131.0 mg/dL (70-99); Potassium, Blood 4.5 mmol/L (3.5-5.5); Sodium, Blood 134.0 mmol/L (136-145)
[2024-11-27 04:51] LABS: Creatinine, Blood 0.63 mg/dL (0.60-1.20)
--- NOTE | 2024-11-27 05:54 | NUR ---
SHIFT SUMMARY PATIENT REMAINS ALERT AND ORIENTED X4. SP02 94% ON AIRVO 50L FI02 40%. HR SR 55-65, BP STABLE. USES URINAL AT BEDSIDE. INDEPENDENT WIT REPOSITIONING. NO ACUTE CHANGES. CALL LIGHT IN REACH
--- NOTE | 2024-11-27 08:24 | NUR ---
ASSUMPTION OF CARE... ASSUMED CARE OF PATIENT AT APPROX 0700. PATIENT A&0X4 AND ABLE TO MAKE NEEDS KNOWN. MOVES ALL LIMBS SPONTANEOUSLY. HR SINUS IN THE 60S-70S. BP STABLE WITH MAPS >65. PATIENT ON AIRVO 50L/40% FIO2 WITH SPO2 >92%. PATIENT USES URINAL STANDING AT BEDSIDE WITH MIN ASSIST, CLEAR YELLOW URINE OUTPUT. PATIENT STATES HE HAD BM LAST NIGHT. CALL LIGHT NEAR.
[2024-11-27] MEDS ORDERED: Folic Acid 1 MG TAB PO SCH (09:00)
[2024-11-27] MEDS ORDERED: Ondansetron HCl 2 MG / ML 2ML Vial IV ONE (12:10)
[2024-11-27] MEDS ORDERED: NS IV SCH (15:00)
[2024-11-27] MEDS ORDERED: RITUXIMAB ARRX IV SCH (15:00)
--- NOTE | 2024-11-27 17:37 | NUR ---
SHIFT SUMMARY... PATIENT A&OX4, ABLE TO MAKE NEEDS KNOWN, MOVES ALL LIMBS SPONTANEOUSLY. PATIENT ON 45L/40% FIO2 ON AIRVO WITH SPO2 >96%. HR SINUS IN THE 60S-70S. BP STABLE WITH MAPS >65. PATIENT USES URINAL WITH SBA, CLEAR YELLOW URINE OUTPUT. NO BM THIS SHIFT. IV TO LEFT FA HAS RITUXIMAB GTT INFUSING SINCE 1526, TITRATIONS PER EMAR. SEE FLOWSHEET. PATIENT WAS EDUCATED ON INFUSION RELATED REACTIONS, NO REACTIONS NOTED SINCE STARTING THE MED OR WITH TITRATIONS. SISTER AT BEDSIDE. PATIENT UP IN CHAIR MOST OF THIS SHIFT WITH MINIMAL ASSISTANCE. CALL LIGHT NEAR. NO ACUTE CHANGES.
[2024-11-27] MEDS ORDERED: Cefepime HCl 2,000 MG in NS 100 ML IV SCH (20:00)
[2024-11-27 22:31] LABS: Vancomycin, Trough 16.5 ug/mL (5.0-10.0)
[2024-11-28] VITALS (10 sets, daily range): BP systolic 119–146; BP diastolic 76–87
[2024-11-28 04:07] LABS: BASOPHILS ABSOLUTE AUTO 0.01 K/mm3 (0.00-0.23); BASOPHILS PERCENT AUTO 0 % (0-2); EOSINOPHILS ABSOLUTE AUTO 0.19 K/mm3 (0.00-0.68); EOSINOPHILS PERCENT AUTO 4 % (0-6); Hematocrit 38.6 % (37.0-53.0); Hemoglobin 12.3 g/dL (13.5-17.5); IMMATURE GRAN ABSOLUTE AUTO 0.03 K/mm3 (0.00-0.10); IMMATURE GRAN PERCENT AUTO 1 % (0-1); LYMPHOCYTES ABSOLUTE AUTO 0.40 K/mm3 (0.84-5.20); LYMPHOCYTES PERCENT AUTO 9 % (21-46); MONOCYTES ABSOLUTE AUTO 0.34 K/mm3 (0.16-1.47); MONOCYTES PERCENT AUTO 8 % (4-13); Mean Corpuscular HGB Conc 31.9 g/dL (31.5-36.5); Mean Corpuscular Volume 97 fL (80-100); NEUTROPHILS ABSOLUTE AUTO 3.41 K/mm3 (1.96-9.15); NEUTROPHILS PERCENT AUTO 78 % (41-73); NRBC ABSOLUTE 0.00 K/mm3 (0.00-0.02); NRBC Auto 0.0 /100 WBC (0.0-0.2); RDW Coefficient Variation 14.1 % (11.7-14.2); RDW Standard Deviation 49.1 fL (35.1-46.3)
[2024-11-28 04:16] LABS: Platelet Count 2 K/mm3 (150-400)
[2024-11-28 04:35] LABS: Alanine Aminotransfer (ALT/SGP 72.0 U/L (12-78); Albumin, Blood 2.2 g/dL (3.4-5.0); Albumin/Globulin Ratio 0.4 (0.8-1.8); Anion Gap 2.0 mmol/L (3-11); Aspartate Aminotrans (AST/SGOT 38.0 U/L (12-37); Bilirubin, Total 0.9 mg/dL (0.1-1.0); Blood Urea Nitrogen 24.0 mg/dL (8-24); CO2, Blood 34.0 mmol/L (21-32); Calcium, Blood 8.3 mg/dL (8.5-10.1); Chloride, Blood 102.0 mmol/L (98-108); Creatinine, Blood 0.67 mg/dL (0.60-1.20); Globulin, Blood 4.9 g/dL (2.2-4.0); Glucose, Blood 85.0 mg/dL (70-99); Potassium, Blood 4.2 mmol/L (3.5-5.5); Sodium, Blood 134.0 mmol/L (136-145); Total Protein, Blood 7.1 g/dL (6.4-8.2)
--- NOTE | 2024-11-28 06:35 | NUR ---
SHIFT SUMMARY: NO ACUTE CHANGES THIS SHIFT. PT REMAINS A&OX4, ABLE TO MAKE NEEDS KNOWN AND PARTICIPATE IN CARE. AFEBRILE. PT IS A MIN STANDBY ASSIST, ABLE TO MOVE INDEPENDENTLY IN ROOM. VSS. MAP >65. HR 60S-70S, SINUS. LUNGS COARSE/DIM. REMAINS ON AIRVO 45L, 40%FIO2. PT NEEDED FREQUENT REMINDERS TO KEEP OXYGEN ON DURING THE NIGHT. HE WOULD RE-ARRANGE AIRVO SO THAT NASAL PRONGS WERE NOT IN NOSTRILS, PT OBSERVED TO DESAT TO CAMILA 70S W/O OXYGEN. PT ALSO REQUESTED TO TAKE "A BREAK" FROM AIRVO AND FOR SHORT PERIOD WORE AN OXYMIZER MASK W/ 8L O2. PT EDUCATED ON NEED TO WEAN OFF OXYGEN AND IMPORTANCE OF WEARING AIRVO. PT DENIES SOB WHILE AT REST BUT ENDORSES SOME WHEN STANDING. DENIES PAIN. DENIES N/V. PT USING URINAL APPROPRIATELY. PT REFUSED TO USE SCD'S DUE TO "NOT LIKING THE FEELING." PIV TO [facility]. THIS RN TO REPORT TO ONCOMING RN. CARE CONTINUES.
--- NOTE | 2024-11-28 07:00 | NUR ---
ASSUMPTION OF CARE: REPORT FROM YAMINI, THIS RN TO ASSUME CARE OF PT. PT RESTING IN BED ON CARIDAC AND VS MONITORING. PT NOT AGREEABLE TO TAKING LEVOTHYROXINE AT THIS TIME. REQUESTING NOT TO BE BOTHERED AND WANTS TO SLEEP. NOT IN ANY DISTRESS AT THIS TIME. VSS. WILL CONTINUE TO CARE FOR PT TILL END OF SHIFT.
[2024-11-28] MEDS ORDERED: Multivitamins 1 Tab PO SCH (09:00)
[2024-11-28 10:41] LABS: HEPATITIS C AB CIA INTERP Negative (Negative); HEPATITIS C ANTIBODY CIA INDEX 0.07 IV
[2024-11-28] MEDS ORDERED: Cefepime HCl 2,000 MG in NS 100 ML IV SCH (14:00)
[2024-11-28 17:17] LABS: HBV CORE ANTIBODIES,TOTAL Positive (Negative)
--- NOTE | 2024-11-28 18:27 | NUR ---
SHIFT SUMMARY: PT A&OX4. FOLLOWS COMMANDS AND MAKES NEEDS KNOWN TO STAFF. PT REPORTS HAVING A HEADACHE OFF AND ON TODAY WAS MEDICATED PER EMAR. PT HAS BEEN SLEEPING MOST OF THE DAY AND HAS NOT WANTED TO BE BOTHERED. DENIES ANY COMPLAINTS OF CP, PRESSURE, TIGHTNESS OR SOB. VSS. MAP HAS REMAINED >65. OXYGEN WAS TITRATED DOWN TO 6L NC. O2 SATS HAVE REMAINED GREATER THEN 95%. PT HAS BEEN USING URINAL AT BEDSIDE. SISTER HAS BEEN AT BEDSIDE OFF AND ON THROUGHT THE DAY. NO SIGNIFICANT EVENTS HAPPENED DURING THIS SHIFT. WILL CONTINUE TO CARE FOR PT TILL END OF SHIFT.
[2024-11-28 18:31] LABS: HEPATITIS B SURFACE ANTIBODY 998.30 IU/L; HEPATITIS BE ANTIBODY Negative (Negative); HEPATITIS BE ANTIGEN Negative (Negative)
--- NOTE | 2024-11-28 21:00 | NUR ---
ASSUMPTION OF CARE CARE OF PT ASSUMED FOLLOWING BEDSIDE SHIFT REPORT FROM DAY RN. PT IN BED IN NO APPARENT DISTRESS. ALERT AND ORIENTED TO ALL. 97.5F. PAIN IN HEADACHE 08/23- WILL TREAT. SINUS RHYTHM IN 60'S AND STABLE BP. PT ON 6L HFNC WITH SATURATION > 92%. NO SOB. NO CHEST PAIN/PRESSURE. LUNGS CLEAR AND COARSE IN BASES. NO ABPAIN, N/V. URINE IN YELLOW WITH REPORTEDLY GOOD OUTPUT IN DAY SHIFT. PT SALINE LOCKED. PT'S PARTNER, JAIRON, WHO HAS BEEN BY HIS SIDE ALMOST EVERY HOUR SINCE ARRIVAL IS HAVING SOME PERSONAL ISSUES DEALING WITH PT'S ILLNESS. PT'S SISTER HAS VISITED HER IN THE ED. WILL REVIEW AND CONTINUE PLAN OF CARE.
[2024-11-28 21:42] LABS: ANTINUCLEAR AB (ANA),HEP-2,IGG Detected (<1:80)
[2024-11-28 22:56] LABS: GBM, IGG MULTIPLEX BEAD ASSAY 0 AU/mL (0-19); MYELOPEROXIDASE (MPO) AB,IGG 0 AU/mL (0-19); SERINE PROTEINASE 3 PR3 AB,IGG 2 AU/mL (0-19)
[2024-11-29] VITALS (8 sets, daily range): BP systolic 112–137; BP diastolic 73–82
[2024-11-29 03:40] LABS: BASOPHILS ABSOLUTE AUTO 0.01 K/mm3 (0.00-0.23); BASOPHILS PERCENT AUTO 0 % (0-2); EOSINOPHILS ABSOLUTE AUTO 0.36 K/mm3 (0.00-0.68); EOSINOPHILS PERCENT AUTO 6 % (0-6); Hematocrit 40.6 % (37.0-53.0); Hemoglobin 13.3 g/dL (13.5-17.5); IMMATURE GRAN ABSOLUTE AUTO 0.01 K/mm3 (0.00-0.10); IMMATURE GRAN PERCENT AUTO 0 % (0-1); LYMPHOCYTES ABSOLUTE AUTO 0.53 K/mm3 (0.84-5.20); LYMPHOCYTES PERCENT AUTO 9 % (21-46); MONOCYTES ABSOLUTE AUTO 0.62 K/mm3 (0.16-1.47); MONOCYTES PERCENT AUTO 11 % (4-13); Mean Corpuscular HGB Conc 32.8 g/dL (31.5-36.5); Mean Corpuscular Volume 95 fL (80-100); NEUTROPHILS ABSOLUTE AUTO 4.19 K/mm3 (1.96-9.15); NEUTROPHILS PERCENT AUTO 73 % (41-73); NRBC ABSOLUTE 0.00 K/mm3 (0.00-0.02); NRBC Auto 0.0 /100 WBC (0.0-0.2); RDW Coefficient Variation 13.9 % (11.7-14.2); RDW Standard Deviation 48.2 fL (35.1-46.3)
[2024-11-29 03:46] LABS: Platelet Count 1 K/mm3 (150-400)
[2024-11-29 03:59] LABS: Anion Gap 3.0 mmol/L (3-11); Blood Urea Nitrogen 16.0 mg/dL (8-24); CO2, Blood 35.0 mmol/L (21-32); Calcium, Blood 8.6 mg/dL (8.5-10.1); Chloride, Blood 99.0 mmol/L (98-108); Creatinine, Blood 0.62 mg/dL (0.60-1.20); Glucose, Blood 82.0 mg/dL (70-99); Potassium, Blood 4.1 mmol/L (3.5-5.5); Sodium, Blood 133.0 mmol/L (136-145)
--- NOTE | 2024-11-29 05:33 | NUR ---
SHIFT SUMMARY PT SITTING IN RECLINER, DOZING OFF, AWAKES TO VOICE AND IS ALERT AND ORIENTED TO ALL. PT HAS HEADACHE 08/23- WILL TREAT. OXYCODONE AND TYLENOL HAVE BEEN MINIMALLY EFFECTIVE. AFEBRILE ALL SHIFT. PT STAYED IN SINUS RHYTHM WITH RATE 60-77 AND STABLE BP. PT HAD ONE 5-BEAT RUN OF VTACH AT 0518- PRINTED AND SAVED, ASYMPTOMATIC. PT DENIED CHEST PAIN/PRESSURE ALL SHIFT. PT ON 5L NC WITH SATURATION > 92% AND NO SOB. PT STILL HAS OCCASIONAL PRODUCTIVE COUGH. LUNG SOUNDS ARE SCATTERED COARSE. NO BM THIS SHIFT. URINE OUTPUT 1400ML. PT HAD TROUBLE SLEEPING IN SPITE OF TRAZODONE AND LATER, RESTORIL. HE IS VERY WORRIED ABOUT HIS PARTNER, JAIRON, AND WANTS TO GO VISIT HER IN THE ED. HE ALSO WOULD LIKE TO TAKE A SHOWER. BEDSIDE SHIFT REPORT GIVEN TO DAY RN.
[2024-11-29 05:50] LABS: COPPER,SERUM/PLASMA 122.8 ug/dL (70.0-140.0)
--- NOTE | 2024-11-29 12:19 | NUR ---
ASSUMPTION OF CARE ASSUMED CARE OF PATIENT AT APPROMXIMATELY 0700. PT RESTING IN BED, SLEEPING BUT AROUSABLE. PT ORIENTED X4, ANSWERS QUESTIONS APPROPRIATLEY, FOLLOWS DIRECTION WHEN PROMPTED AND IS ABLE TO MAKE HIS NEEDS KNOWN. PT MOVES EXTREMITIES EQUALLY BILATERALLY, AMBULATES IN THE ROOM WITH ASSISTANCE WITH CORD MANAGEMENT. PT IRRITABLE AND WITHDRAWN. PT COMPLAINING OF HEADACHE, MEDICATED PER EMAR. HR 50-70'S SINUS, MAP >65. PT ON 6LPM VIA NC, OXYGEN SATURATION >92%. ABDOMEN SOFT, BOWEL TONES ACTIVE THROUGHOUT, PT DENIES N/V, POOR ORAL INTAKE. PT USES URINAL TO VOID. PIV IN PLACE TO LFA. BED IN LOWEST POSITION, CALL LIGHT WITHIN REACH, CARE CONTINUES.
[2024-11-29 12:43] LABS: pH Blood Venous 7.41 (7.34-7.37)
--- NOTE | 2024-11-29 18:08 | NUR ---
SHIFT SUMMARY PT CONTINUES TO REST IN BED, SLEEPING BUT AROUSABLE. PT ANSWERS QUESTIONS, FOLLOWS DIRECTION WHEN PROMPTED AND IS ABLE TO MAKE HIS NEEDS KNOWN. PT ORIETNED X4, MOVES EXTREMITIES EQUALLY BILATERALLY. PT UP TO SHOWER THIS AFTERNOON, AND SPENT A FEW HOURS UP IN THE BEDSIDE RECLINER THIS SHIFT. HR 50-70'S SINUS, MAP >65, PT DENIES CP/PRESSURE. PT ON 2LPM VIA NC, OXYGEN SATURATION >95% PT DENIES SOB. ABDOMEN SOFT, BOWEL TONES ACTIVE THROUGHOUT, DENIES N/V. PT USES URINAL TO VOID. POWERGLIDE IN PLACE TO TANJA. BED IN LOWEST POSITON, CALL LIGHT WITHIN REACH, CARE CONTINUES.
--- NOTE | 2024-11-29 19:20 | NUR ---
PT UPDATE CALL PLACED TO HOSPITALIST REGARDING POSITIVE FUNGAL CULTURE.
--- NOTE | 2024-11-29 22:32 | NUR ---
ASSUMED CARE AT 2150, REPORT RECEIVED FROM MIKAL, ASSOCIATE FINANCIAL REPRESENTATIVE. PT IS A/OX4, ON 2L VIA NC, OXYGEN SATURATION ABOVE 95%. VSS. ON CONTINUOUS CARDIAC TELEMETRY, SINUS-SINUS AKIKO WITH HR 50'S-60'S. SELF TRANSFERS FROM WHEELCHAIR TO HOSPITAL BED. DENIES PAIN AT THIS TIME. DENIES CHEST PAIN/PRESSURE, WELL. CALL LIGHT WITHIN REACH, BED IN LOWEST POSITION, PATIENT NOW RESTING COMFORTABLY IN BED.
[2024-11-29 22:40] LABS: Vancomycin, Trough 15.7 ug/mL (5.0-10.0)
[2024-11-30 03:35] VITALS: BP 128/75
[2024-11-30 03:52] LABS: BASOPHILS ABSOLUTE AUTO 0.01 K/mm3 (0.00-0.23); BASOPHILS PERCENT AUTO 0 % (0-2); EOSINOPHILS ABSOLUTE AUTO 0.34 K/mm3 (0.00-0.68); EOSINOPHILS PERCENT AUTO 5 % (0-6); Hematocrit 39.3 % (37.0-53.0); Hemoglobin 13.0 g/dL (13.5-17.5); IMMATURE GRAN ABSOLUTE AUTO 0.03 K/mm3 (0.00-0.10); IMMATURE GRAN PERCENT AUTO 1 % (0-1); LYMPHOCYTES ABSOLUTE AUTO 0.73 K/mm3 (0.84-5.20); LYMPHOCYTES PERCENT AUTO 11 % (21-46); MONOCYTES ABSOLUTE AUTO 0.73 K/mm3 (0.16-1.47); MONOCYTES PERCENT AUTO 11 % (4-13); Mean Corpuscular HGB Conc 33.1 g/dL (31.5-36.5); Mean Corpuscular Volume 94 fL (80-100); NEUTROPHILS ABSOLUTE AUTO 4.56 K/mm3 (1.96-9.15); NEUTROPHILS PERCENT AUTO 71 % (41-73); NRBC ABSOLUTE 0.00 K/mm3 (0.00-0.02); NRBC Auto 0.0 /100 WBC (0.0-0.2); RDW Coefficient Variation 13.9 % (11.7-14.2); RDW Standard Deviation 47.6 fL (35.1-46.3)
[2024-11-30 03:58] LABS: Platelet Count 1 K/mm3 (150-400)
[2024-11-30 04:10] LABS: Anion Gap 4.0 mmol/L (3-11); Blood Urea Nitrogen 19.0 mg/dL (8-24); CO2, Blood 32.0 mmol/L (21-32); Calcium, Blood 8.5 mg/dL (8.5-10.1); Chloride, Blood 99.0 mmol/L (98-108); Creatinine, Blood 0.61 mg/dL (0.60-1.20); Glucose, Blood 107.0 mg/dL (70-99); Potassium, Blood 4.4 mmol/L (3.5-5.5); Sodium, Blood 131.0 mmol/L (136-145)
--- NOTE | 2024-11-30 04:36 | NUR ---
SHIFT SUMMARY - A/OX4, VERBALIZES NEEDS, USES CALL LIGHT APPROPRIATELY. DENIES PAIN. ON CONTINUOUS CARDIAC TELEMETRY, NSR, HR 50 S-60 S, DENIES CHEST PAIN/PRESSURE. ON 2L UPON ARRIVAL, PT DESATS INTO 80'S WHILE SLEEPING, CURRENTLY ON 4L NC. BREATHING IS EVEN AND UNLABORED. SBA TO BATHROOM FOR LINES/CORDS. NO ACUTE EVENTS OVERNIGHT.
[2024-11-30 07:42] VITALS: BP 140/80
--- NOTE | 2024-11-30 11:15 | NUR ---
Spiritual Care Visit. Pt. is awake in bed and welcomes my visit remembering this video rental clerk from a previous visit. Pt. is pleasant. Facilitated a life review and health update. Pt. verbalized his desire to go home, but verbally understands he needs to complete the medical regimine. Pts. sister came to bedside and displayed evidence of being a supportive family member. Without any prompting, Pt. verbalized about the excellent care that he has received from every member of the staff who has cared for him. Prayed with the Pt. Pt. verbalized gratitude for the spiritual care visit.
[2024-11-30 12:41] VITALS: BP 106/65
--- NOTE | 2024-11-30 16:14 | NUR ---
TRANSFER OF CARE REPORT GIVEN TO CAITLIN SMYTH AT 1613 FOR PT TO TRANSFER TO RM 340. PT IS A&O X 4 AND ABLE TO EXPRESS NEEDS. AT BEGINNING OF SHIFT, PT WAS VERY FRUSTRATED AND WANTED TO LEAVE HOSPITAL BUT WAS REDIRECTED. PT AMBULATES IN RM W/ SBA. PT CURRENTLY SATTING OVER 92% ON 3L O2 NC BUT HAS REQUIRED TITRATION FROM 3-6L. HE HAS CONTINUED TO DENY SOB. HE MAINTAINS SR 60s W/ STABLE BPs, MAP > 65. PT NOW MEDICAL STATUS WITHOUT TELE. DR. LOWERY ROUNDED ON PT EARLIER THIS SHIFT TO DISCUSS PT CONDITION AND CARE PLAN. PT WAS UNRECEPTIVE/ RESISTANT TO EDUCATION, MAKING FREQUENT INTERRUPTIONS TO ASK ABOUT OUTSIDE MATTERS SUCH GETTING COFFEE. PT'S SISTER WAS AT BEDSIDE FOR DR. DUKE/ THROUGHOUT SHIFT AND HAS BEEN UPDATED ON CARE. PT IS CURRENTLY FINISHING A SHOWER BEFORE HIS TRANSFER TO [facility] 340.
[2024-11-30 17:05] VITALS: BP 109/78
--- NOTE | 2024-11-30 17:21 | NUR ---
SHIFT SUMMARY/TRANSFER 1720 PT AOX4, COOPERATIVE, ABLE TO MAKE NEEDS KNOWN. PT IS SBA IN ROOM. ON 3-4L O2 CURRENTLY. DOES HAVE BRUSING ON UPPER THIGHS AND BILAT ARMS, PROMINENT ACNE ON UPPER BACK. CONTINENT. TOLERATING MEDICATIONS. FAMILY MEMBER IS BEDSIDE CURRENLTY. BED IN LOWEST POSITION, CALL LIGHT WITHIN REACH.
[2024-11-30 17:32] VITALS: BP 122/68
[2024-11-30 20:44] VITALS: BP 118/82
[2024-12-01 02:35] VITALS: BP 148/93
[2024-12-01 05:11] LABS: BASOPHILS ABSOLUTE AUTO 0.02 K/mm3 (0.00-0.23); BASOPHILS PERCENT AUTO 0 % (0-2); EOSINOPHILS ABSOLUTE AUTO 0.38 K/mm3 (0.00-0.68); EOSINOPHILS PERCENT AUTO 7 % (0-6); Hematocrit 35.7 % (37.0-53.0); Hemoglobin 11.8 g/dL (13.5-17.5); IMMATURE GRAN ABSOLUTE AUTO 0.04 K/mm3 (0.00-0.10); IMMATURE GRAN PERCENT AUTO 1 % (0-1); LYMPHOCYTES ABSOLUTE AUTO 0.63 K/mm3 (0.84-5.20); LYMPHOCYTES PERCENT AUTO 11 % (21-46); MONOCYTES ABSOLUTE AUTO 0.76 K/mm3 (0.16-1.47); MONOCYTES PERCENT AUTO 14 % (4-13); Mean Corpuscular HGB Conc 33.1 g/dL (31.5-36.5); Mean Corpuscular Volume 92 fL (80-100); NEUTROPHILS ABSOLUTE AUTO 3.77 K/mm3 (1.96-9.15); NEUTROPHILS PERCENT AUTO 67 % (41-73); NRBC ABSOLUTE 0.00 K/mm3 (0.00-0.02); NRBC Auto 0.0 /100 WBC (0.0-0.2); RDW Coefficient Variation 13.7 % (11.7-14.2); RDW Standard Deviation 46.3 fL (35.1-46.3)
[2024-12-01 05:15] LABS: Platelet Count 4 K/mm3 (150-400)
[2024-12-01 05:50] LABS: Anion Gap 4.0 mmol/L (3-11); Blood Urea Nitrogen 20.0 mg/dL (8-24); CO2, Blood 32.0 mmol/L (21-32); Calcium, Blood 8.3 mg/dL (8.5-10.1); Chloride, Blood 101.0 mmol/L (98-108); Creatinine, Blood 0.64 mg/dL (0.60-1.20); Glucose, Blood 103.0 mg/dL (70-99); Potassium, Blood 4.1 mmol/L (3.5-5.5); Sodium, Blood 133.0 mmol/L (136-145)
--- NOTE | 2024-12-01 06:27 | NUR ---
SHIFT SUMMARY PT A&Ox4. SISTER AT BEDSIDE AT THE START OF SHIFT. PT C/O CONDE AND MEDICATED PER EMAR WITH GOOD EFFECT. IV ABX GIVEN PER ORDER. PT REMAINS ON 3L OF OXYGEN DURING THE NIGHT AND SATING >94%. PT WITH CRITICALY LOW PLT COUNT, INCREASED TO 4 WITH MORNING LAB DRAW. PROVIDER NOTIFIED AND ORDER GIVEN FOR 1 UNIT OF PLATELETS. PT WAS ABLE TO SLEEP MOST OF THE NIGHT. VSS. BED IN LOWEST POSITION AND CALL LIGHT IN REACH.
[2024-12-01 07:29] VITALS: BP 158/82
[2024-12-01 10:20] VITALS: BP 123/74
[2024-12-01] MEDS ORDERED: Magnesium Hydroxide Conc 10 ML UDC PO PRN (12:30)
[2024-12-01 15:56] VITALS: BP 127/73
--- NOTE | 2024-12-01 16:57 | NUR ---
SHIFT SUMMARY PATIENT RECEIVED 1 UNIT PLATELETS, TOLERATED WELL. FAMILY IN TO VISIT MOST OF SHIFT. ABLE TO SIT IN CHAIR TOLERATED. ON 3 LITERS NC, BASELINE OF 4 L, SATING WELL, NO REPORTS OF SOB. ABLE TO MAKE NEEDS KNOWN. CALL LIGHT IN REACH.
[2024-12-01 20:33] VITALS: BP 120/75
[2024-12-02 03:45] VITALS: BP 129/82
--- NOTE | 2024-12-02 04:14 | NUR ---
SHIFT SUMMARY: PT IS IND IN ROOM. PT HAD VISITORS ATTHE START OF SHIFT THAT LEFT ABOUT 1999. PT UP TO BATHROOM TO VOID INDEPENDANTLY. PT SLEPT IN THE RECLINER MOST OF SHIFT. NO ACUTE CHANGES THIS SHIFT.
[2024-12-02 05:14] LABS: BASOPHILS ABSOLUTE AUTO 0.02 K/mm3 (0.00-0.23); BASOPHILS PERCENT AUTO 0 % (0-2); EOSINOPHILS ABSOLUTE AUTO 0.38 K/mm3 (0.00-0.68); EOSINOPHILS PERCENT AUTO 7 % (0-6); Hematocrit 34.7 % (37.0-53.0); Hemoglobin 11.4 g/dL (13.5-17.5); IMMATURE GRAN ABSOLUTE AUTO 0.02 K/mm3 (0.00-0.10); IMMATURE GRAN PERCENT AUTO 0 % (0-1); LYMPHOCYTES ABSOLUTE AUTO 0.75 K/mm3 (0.84-5.20); LYMPHOCYTES PERCENT AUTO 14 % (21-46); MONOCYTES ABSOLUTE AUTO 0.74 K/mm3 (0.16-1.47); MONOCYTES PERCENT AUTO 14 % (4-13); Mean Corpuscular HGB Conc 32.9 g/dL (31.5-36.5); Mean Corpuscular Volume 95 fL (80-100); NEUTROPHILS ABSOLUTE AUTO 3.34 K/mm3 (1.96-9.15); NEUTROPHILS PERCENT AUTO 64 % (41-73); NRBC ABSOLUTE 0.00 K/mm3 (0.00-0.02); NRBC Auto 0.0 /100 WBC (0.0-0.2); RDW Coefficient Variation 13.9 % (11.7-14.2); RDW Standard Deviation 47.4 fL (35.1-46.3)
[2024-12-02 05:22] LABS: Platelet Count 21 K/mm3 (150-400)
[2024-12-02 05:44] LABS: Anion Gap 5.0 mmol/L (3-11); Blood Urea Nitrogen 18.0 mg/dL (8-24); CO2, Blood 32.0 mmol/L (21-32); Calcium, Blood 8.6 mg/dL (8.5-10.1); Chloride, Blood 101.0 mmol/L (98-108); Creatinine, Blood 0.57 mg/dL (0.60-1.20); Glucose, Blood 94.0 mg/dL (70-99); Potassium, Blood 3.8 mmol/L (3.5-5.5); Sodium, Blood 134.0 mmol/L (136-145)
[2024-12-02 07:56] VITALS: BP 121/77
[2024-12-02 14:38] VITALS: BP 121/67
[2024-12-02 16:21] LABS: BASOPHILS ABSOLUTE AUTO 0.01 K/mm3 (0.00-0.23); BASOPHILS PERCENT AUTO 0 % (0-2); EOSINOPHILS ABSOLUTE AUTO 0.29 K/mm3 (0.00-0.68); EOSINOPHILS PERCENT AUTO 6 % (0-6); Hematocrit 33.9 % (37.0-53.0); Hemoglobin 11.3 g/dL (13.5-17.5); IMMATURE GRAN ABSOLUTE AUTO 0.02 K/mm3 (0.00-0.10); IMMATURE GRAN PERCENT AUTO 0 % (0-1); LYMPHOCYTES ABSOLUTE AUTO 0.55 K/mm3 (0.84-5.20); LYMPHOCYTES PERCENT AUTO 10 % (21-46); MONOCYTES ABSOLUTE AUTO 0.67 K/mm3 (0.16-1.47); MONOCYTES PERCENT AUTO 13 % (4-13); Mean Corpuscular HGB Conc 33.3 g/dL (31.5-36.5); Mean Corpuscular Volume 92 fL (80-100); NEUTROPHILS ABSOLUTE AUTO 3.75 K/mm3 (1.96-9.15); NEUTROPHILS PERCENT AUTO 71 % (41-73); NRBC ABSOLUTE 0.00 K/mm3 (0.00-0.02); NRBC Auto 0.0 /100 WBC (0.0-0.2); RDW Coefficient Variation 13.6 % (11.7-14.2); RDW Standard Deviation 45.8 fL (35.1-46.3)
[2024-12-02 16:39] LABS: Platelet Count 30 K/mm3 (150-400)
--- NOTE | 2024-12-02 18:22 | NUR ---
SHIFT SUMMARY- CRITICAL PLATELET COUNT OF 30. NO CHANGE IN CARE PLAN PER HCP. HOME O2 STUDY/ASSESSMENT IS ORDERED AND WILL BE COMPLETED TOMORROW. MOM ORDERED FOR CONSTIPATION, NOT ADMINISTERED PATIENT HAD BOWEL MOVEMENT. PATIENT CONTINUES TO HAVE HEADACHES ABOVE HIS EYES, MANAGED WITH TYLENOL PER EMR.
[2024-12-02 19:30] VITALS: BP 126/65
[2024-12-03 03:48] VITALS: BP 133/70
--- NOTE | 2024-12-03 05:03 | NUR ---
SHIFT SUMMARY: PT AOX4 IND IN THE ROOM. COMPLAINTS OF DIFFICULTY SLEEPING AND SEVERE PAIN ALTHOUGH WAS ABLE TO SLEEP THROUGH THE FIRST PART OF THE SHIFT PRETTY WELL. PAIN MEDICATED PER EMR. PT TOLERATING MEDICATIONS WELL. NO ACUTE OVERNIGHT EVENTS. HOME O2 EVAL SCHEDULED TODAY. PT IN BED RESTING, BED IN LOWEST POSITION, CALL LIGHT IN REACH. CONTINUING CARE.
[2024-12-03 05:47] LABS: BASOPHILS ABSOLUTE AUTO 0.02 K/mm3 (0.00-0.23); BASOPHILS PERCENT AUTO 0 % (0-2); EOSINOPHILS ABSOLUTE AUTO 0.22 K/mm3 (0.00-0.68); EOSINOPHILS PERCENT AUTO 5 % (0-6); Hematocrit 33.5 % (37.0-53.0); Hemoglobin 11.3 g/dL (13.5-17.5); IMMATURE GRAN ABSOLUTE AUTO 0.02 K/mm3 (0.00-0.10); IMMATURE GRAN PERCENT AUTO 0 % (0-1); LYMPHOCYTES ABSOLUTE AUTO 0.54 K/mm3 (0.84-5.20); LYMPHOCYTES PERCENT AUTO 11 % (21-46); MONOCYTES ABSOLUTE AUTO 0.66 K/mm3 (0.16-1.47); MONOCYTES PERCENT AUTO 14 % (4-13); Mean Corpuscular HGB Conc 33.7 g/dL (31.5-36.5); Mean Corpuscular Volume 93 fL (80-100); NEUTROPHILS ABSOLUTE AUTO 3.28 K/mm3 (1.96-9.15); NEUTROPHILS PERCENT AUTO 69 % (41-73); NRBC ABSOLUTE 0.00 K/mm3 (0.00-0.02); NRBC Auto 0.0 /100 WBC (0.0-0.2); RDW Coefficient Variation 13.7 % (11.7-14.2); RDW Standard Deviation 46.6 fL (35.1-46.3)
[2024-12-03 05:57] LABS: Platelet Count 41 K/mm3 (150-400)
[2024-12-03 06:06] LABS: Anion Gap 4.0 mmol/L (3-11); Blood Urea Nitrogen 16.0 mg/dL (8-24); CO2, Blood 33.0 mmol/L (21-32); Calcium, Blood 8.6 mg/dL (8.5-10.1); Chloride, Blood 102.0 mmol/L (98-108); Creatinine, Blood 0.58 mg/dL (0.60-1.20); Glucose, Blood 103.0 mg/dL (70-99); Potassium, Blood 3.8 mmol/L (3.5-5.5); Sodium, Blood 135.0 mmol/L (136-145)
[2024-12-03 07:51] VITALS: BP 122/69
[2024-12-03] MEDS ORDERED: TORSE20 PO (12:29)
[2024-12-03] MEDS ORDERED: GABA300 PO (12:30)
[2024-12-03] MEDS ORDERED: JARDIANCE10 MG PO (12:30)
[2024-12-03] MEDS ORDERED: ACET500 PO (12:30)
[2024-12-03] MEDS ORDERED: TRAZ50 PO (12:31)
[2024-12-03] MEDS ORDERED: MULVITA PO (12:31)
[2024-12-03] MEDS ORDERED: Nicoderm Cq1 EACH TOP (12:31)
[2024-12-03] MEDS ORDERED: B-1100 M1 PO (12:31)
[2024-12-03] MEDS ORDERED: PROAIR DIGIHAL90 MCG INH (12:32)
--- NOTE | 2024-12-03 15:07 | NUR ---
DISCHARGE PT DISCHARGED HOME WITH HOME O2 TANKS. PT TRAVELING DOWN TO [place] WHERE HE WILL REACH OUT TO [facility] FOR HOME O2 CONCENTRATOR. PG REMOVED AND SITE APPEARS WNL. NEW RX FAXED TO [facility] [address] [facility] IN [place], [place]. DISCHARGE INSTRUCTIONS REVIEWED WITH PT AND PT SISTER. ALL QUESTIONS ANSWERED BY RN AND HOSPITALIST. PT AMBULATED INDEPENDENTLY TO AND WHEELED DOWN TO CAR BY RN.
== END 2024-12-03 14:52 | disposition home or self-care (01) | DRG 280 ==
LOC: ER 16:45 → PCU 22:13 → ICUE 22:13 → PCU 11-29 21:50 → MEDS 11-30 17:10
PROVIDERS: Emergency Medicine; Family Medicine; Internal Medicine; Internal Medicine Critical Care Medicine; Student in an Organized Health Care Education/Training Program; ADMIT Internal Medicine
PROC: 30233R1 Transfusion of Nonautologous Platelets into Peripheral Vein, Percutaneous Approach (ICD-10-PCS; principal; 2024-11-21)
PROC: 3E03329 Introduction of Other Anti-infective into Peripheral Vein, Percutaneous Approach (ICD-10-PCS; 2024-11-22)
PROC: 30233S1 Transfusion of Nonautologous Globulin into Peripheral Vein, Percutaneous Approach (ICD-10-PCS; 2024-11-22)
PROC: 5A0945A Assistance with Respiratory Ventilation, 24-96 Consecutive Hours, High Flow/Velocity Cannula (ICD-10-PCS; 2024-11-22)
DX: I50.21 Acute systolic (congestive) heart failure (principal); J18.9 Pneumonia, unspecified organism; I21.A1 Myocardial infarction type 2; J96.21 Acute and chronic respiratory failure with hypoxia; D69.3 Immune thrombocytopenic purpura; R65.10 Systemic inflammatory response syndrome (SIRS) of non-infectious origin without acute organ dysfunction; I42.9 Cardiomyopathy, unspecified; E78.5 Hyperlipidemia, unspecified; E03.9 Hypothyroidism, unspecified; F32.A Depression, unspecified; D64.9 Anemia, unspecified; R73.03 Prediabetes; F15.90 Other stimulant use, unspecified, uncomplicated; I48.0 Paroxysmal atrial fibrillation; I27.20 Pulmonary hypertension, unspecified; J98.4 Other disorders of lung; J98.2 Interstitial emphysema; E66.9 Obesity, unspecified; R73.9 Hyperglycemia, unspecified; Z87.891 Personal history of nicotine dependence; Z91.148 Patient's other noncompliance with medication regimen for other reason; Z79.84 Long term (current) use of oral hypoglycemic drugs; Z79.890 Hormone replacement therapy; Z79.899 Other long term (current) drug therapy; Z71.41 Alcohol abuse counseling and surveillance of alcoholic
CPT/HCPCS: 0202U; 36415; 36430; 71045; 71046; 71275; 73140; 74177; 80048; 80053; 80202; 81001; 82272; 82525; 82550; 82607; 82746; 82803; 83010; 83036; 83516; 83605; 83615; 83735; 83880; 84100; 84145; 84439; 84443; 84484; 85007; 85025; 85027; 85045; 85060; 85610; 85730; 86039; 86704; 86707; 86803; 86850; 86880; 86900; 86901; 87040; 87070; 87086; 87205; 87340; 87350; 87389; 87637; 93005; 93010; 93306; 94640; 94664; 94760; 94761; 94762; 96374-59; 96375-59; 99285-25; A9270; C1751; J0456; J0692; J0696; J1100; J1200; J1459; J1938; J2405; J2470; J3373; J7030; J7040; J7050; J7120; P9035; Q5123; Q9967